=== PATIENT | male | born 1975 | race Caucasian/White ===

== ENCOUNTER 2021-08-17 14:52 | Emergency (ER) | payer MEDICAID ==
[2021-08-17] MEDS ORDERED: SODIUM CHLORIDE 0.9% 1000 ML 1,000 ML IV ONE (15:37)
[2021-08-17] MEDS ORDERED: NICOTINE 14 MG/24 HR PATCH TD ONE (16:09)
[2021-08-17 16:39] LABS: Basophils % (Auto) 0.6 % (0.0-1.8); Eosinophils # (Auto) 0.1 K/mm3 (0.0-0.4); Eosinophils % (Auto) 1.8 % (0.0-4.3); Hemoglobin 14.7 gm/dl (11.8-15.2); Lymphocytes # (Auto) 1.2 K/mm3 (1.2-5.4); Lymphocytes % (Auto) 34.7 % (13.4-35.0); Mean Corpuscular HGB Conc 33 % (32-34); Mean Corpuscular Volume 97 fl (84-94); Monocytes # (Auto) 0.4 K/mm3 (0.0-0.8); Platelet Count 237 K/mm3 (140-440); Red Blood Count 4.56 M/mm3 (3.65-5.03); Red Cell Distribution Width 14.9 % (13.2-15.2)
[2021-08-17 17:06] LABS: BUN/Creatinine Ratio 6; Blood Urea Nitrogen 7 mg/dL (9-20); Calcium 8.7 mg/dL (8.4-10.2); Hemolysis Index 5
--- NOTE | 2021-08-17 17:44 | Emergency Department Report ---
ED General Adult HPI - General Chief complaint: Alcohol Stated complaint: HYPERTENSIVE/ETOH Time Seen by Provider: 08/17/21 15:18 Source: patient, EMS Mode of arrival: Stretcher Limitations: No Limitations - History of Present Illness Initial comments: Patient is a 46-year-old F [place] male who is presenting status post syncopal episode while drinking alcohol. Patient states that he had been drinking heavily over the last 2 days because he had been upset about not living with his anymore. Patient states that he lost his balance and fell down and lost consciousness briefly. States there is no headache is does not believe he hit his head. Patient states that he needs to checkup because he is has been living well lately and has been drinking and eating a lots of processed foods. Denies any current nausea vomiting diarrhea cough cold congestion fevers or chills - Related Data Allergies Allergy/AdvReac Type Severity Reaction Status Date / Time No Known Allergies Allergy Unverified 08/17/21 16:09 ED Review of Systems ROS: Stated complaint: HYPERTENSIVE/ETOH Other details as noted in HPI Comment: All other systems reviewed and negative ED Past Medical Hx - Past Medical History Previous Medical History?: Yes Hx Hypertension: Yes Hx Congestive Heart Failure: Yes Hx Psychiatric Treatment: Yes (schizophrenia) - Social History Smoking Status: Unknown if ever smoked ED Physical Exam - General Limitations: No Limitations General appearance: alert, in no apparent distress, appears intoxicated - Head Head exam: Present: atraumatic, normocephalic - Eye Eye exam: Present: normal appearance - ENT ENT exam: Present: mucous membranes moist - Neck Neck exam: Present: normal inspection - Respiratory Respiratory exam: Present: normal lung sounds bilaterally. Absent: respiratory distress, wheezes, rales, rhonchi - Cardiovascular Cardiovascular Exam: Present: regular rate, normal rhythm. Absent: systolic murmur, diastolic murmur, rubs, gallop - GI/Abdominal GI/Abdominal exam: Present: soft, normal bowel sounds. Absent: distended, tenderness, guarding, rebound - Rectal Rectal exam: Present: deferred - Extremities Exam Extremities exam: Present: normal inspection - Back Exam Back exam: Present: normal inspection - Neurological Exam Neurological exam: Present: alert, oriented X3 - Psychiatric Psychiatric exam: Present: normal affect, normal mood - Skin Skin exam: Present: warm, dry, intact, normal color. Absent: rash ED Course Vital Signs 08/17/21 08/17/21 08/17/21 15:21 15:45 17:17 Pulse Rate 78 83 Respiratory 18 22 20 Rate Blood Pressure 110/68 100/67 O2 Sat by Pulse 98 100 97 Oximetry ED Medical Decision Making - Lab Data Result diagrams: 08/17/21 15:57 08/17/21 15:57 Lab Results 08/17/21 08/17/21 08/17/21 Range/Units 15:57 15:57 15:57 WBC 3.5 L (4.5-11.0) K/mm3 RBC 4.56 (3.65-5.03) M/mm3 Hgb 14.7 (11.8-15.2) gm/dl Hct 44.0 (35.5-45.6) % MCV 97 H (84-94) fl MCH 32 (28-32) pg MCHC 33 (32-34) % RDW 14.9 (13.2-15.2) % Plt Count 237 (140-440) K/mm3 Lymph % (Auto) 34.7 (13.4-35.0) % [place] % (Auto) 11.0 H (0.0-7.3) % Eos % (Auto) 1.8 (0.0-4.3) % Baso % (Auto) 0.6 (0.0-1.8) % Lymph # (Auto) 1.2 (1.2-5.4) K/mm3 [place] # (Auto) 0.4 (0.0-0.8) K/mm3 Eos # (Auto) 0.1 (0.0-0.4) K/mm3 Baso # (Auto) 0.0 (0.0-0.1) K/mm3 Seg Neutrophils % 51.9 (40.0-70.0) % Seg Neutrophils # 1.8 (1.8-7.7) K/mm3 Sodium 144 (137-145) mmol/L Potassium 3.4 L (3.6-5.0) mmol/L Chloride 102.8 (98-107) mmol/L Carbon Dioxide 25 (22-30) mmol/L Anion Gap 20 mmol/L BUN 7 L (9-20) mg/dL Creatinine 1.1 (0.8-1.3) mg/dL Estimated GFR > 60 ml/min BUN/Creatinine Ratio 6 % Glucose 90 (75-100) mg/dL Calcium 8.7 (8.4-10.2) mg/dL Plasma/Serum Alcohol 0.15 H (0-0.07) % - Medical Decision Making Patient's glucose is within normal limits. Vital signs are stable. Alcohol level is elevated but not to any critical levels. Patient likely had a simple orthostatic syncopal episode. Patient hydrated and is feeling much improved and is asymptomatic on standing. patient stable for discharge. Critical care attestation.: If time is entered above; I have spent that time in minutes in the direct care of this critically ill patient, excluding procedure time. ED Disposition Clinical Impression: Alcohol abuse, Orthostatic syncope Disposition: 01 HOME / SELF CARE / HOMELESS Is pt being admited?: No Does the pt Need Aspirin: No Condition: Stable Instructions: Syncope (ED), Alcohol Use Disorder Referrals: LATASHA PEPPER MD [Referring] - 3-5 Days Time of Disposition: 17:47
[2021-08-17 18:18] VITALS: BP 117/82
== END 2021-08-17 17:00 | disposition home or self-care (01) ==
LOC: ED 14:52
DX: I95.1 Orthostatic hypotension (principal); F10.10 Alcohol abuse, uncomplicated
CPT/HCPCS: 36415; 80048; 80320; 85025; 96360; 99284; G0480